=== PATIENT | female | born 1985 | race American Indian/Alaskan Native ===

== ENCOUNTER 2018-10-18 14:59 | Emergency (ER) | payer MEDICAID ==
--- NOTE | 2018-10-18 15:33 | Emergency Department Report ---
ED HPI - General Chief complaint: Vaginal Bleeding Stated complaint: 5WKS PREG/SPOTTING Time Seen by Provider: 10/18/18 15:18 Source: patient Mode of arrival: Ambulatory Limitations: No Limitations - History of Present Illness Initial comments: Zbigniew is a 33-year-old -[place] female who comes to the ER today complaining of vaginal bleeding in . 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 Last menstrual 09/09/2018. 2 para 1. She states that the bleeding is mild spotting. She denies abdominal pain. No vaginal discharge. Home meds Vimpat recently stopped for upcoming neurology appointment Complaint: vaginal bleeding -: Sudden Associated symptoms: vaginal bleeding Vaginal bleeding: light :: Yes - Related Data Allergies Allergy/AdvReac Type Severity Reaction Status Date / Time No Known Allergies Allergy Verified 10/18/18 15:07 ED Review of Systems ROS: Stated complaint: 5WKS PREG/SPOTTING Other details as noted in HPI Comment: All other systems reviewed and negative Constitutional: denies: chills Eyes: denies: eye pain ENT: denies: throat pain Respiratory: denies: orthopnea Cardiovascular: denies: palpitations Endocrine: denies: excessive sweating Gastrointestinal: denies: nausea Genitourinary: as per HPI, other (bleeding in preg). denies: urgency, dysuria, frequency, hematuria, discharge, abnormal menses, dyspareunia Musculoskeletal: denies: back pain Skin: denies: lesions Neurological: denies: weakness Psychiatric: denies: anxiety Hematological/Lymphatic: denies: as per HPI ED Past Medical Hx - Past Medical History Previous Medical History?: Yes Hx Seizures: Yes Additional medical history: anxiety attacks and "muscle spasms" - Surgical History Additional Surgical History: unknown - Family History Family history: no significant - Social History Smoking Status: Current Some Day Smoker Substance Use Type: Marijuana ED Physical Exam - General Limitations: No Limitations General appearance: alert - Head Head exam: Present: atraumatic - Eye Eye exam: Present: normal appearance, PERRL - ENT ENT exam: Present: mucous membranes moist - Neck Neck exam: Present: normal inspection - Respiratory Respiratory exam: Present: normal lung sounds bilaterally - Cardiovascular Cardiovascular Exam: Present: regular rate - GI/Abdominal GI/Abdominal exam: Present: soft, normal bowel sounds - Extremities Exam Extremities exam: Present: normal inspection - Back Exam Back exam: Present: normal inspection, full ROM - Neurological Exam Neurological exam: Present: alert, oriented X3, CN II-XII intact - Psychiatric Psychiatric exam: Present: normal affect, normal mood, anxious - Skin Skin exam: Present: warm, dry, intact ED Course Vital Signs 10/18/18 15:07 Temperature 98.3 F Pulse Rate 86 Respiratory 16 Rate Blood Pressure 128/81 O2 Sat by Pulse 100 Oximetry ED Medical Decision Making - Lab Data Result diagrams: 10/18/18 15:24 10/18/18 15:24 - Radiology Data Radiology results: report reviewed - Medical Decision Making LABS NOTED BLOOD TYPE A POS US noted dc home with obgyn follow up in 48 hours. Labs 10/18/18 10/18/18 10/18/18 15:24 15:24 15:24 WBC 5.3 RBC 4.67 Hgb 13.8 Hct 42.4 MCV 91 MCH 30 MCHC 33 RDW 14.6 Plt Count 144 Sodium 138 Potassium 4.2 Chloride 102.6 Carbon Dioxide 26 Anion Gap 14 BUN 11 Creatinine 0.5 L Estimated GFR > 60 BUN/Creatinine Ratio 22 Glucose 83 Calcium 10.0 HCG, Quant Urine Color Yellow Urine Turbidity Clear Urine pH 5.0 Ur Specific [place] 1.028 Urine Protein <15 mg/dl Urine Glucose (UA) Neg Urine Ketones Tr Urine Blood Neg Urine Nitrite Neg Ur Reducing Substances Not Reportable Urine Bilirubin Neg Urine Ictotest Not Reportable Urine Urobilinogen < 2.0 Ur Leukocyte Esterase Neg Urine WBC (Auto) 3.0 Urine RBC (Auto) 5.0 U Epithel Cells (Auto) 3.0 Urine Mucus 3+ Urine HCG, Qual Positive A Blood Type 10/18/18 10/18/18 15:24 15:24 WBC RBC Hgb Hct MCV MCH MCHC RDW Plt Count Sodium Potassium Chloride Carbon Dioxide Anion Gap BUN Creatinine Estimated GFR BUN/Creatinine Ratio Glucose Calcium HCG, Quant 5785 H Urine Color Urine Turbidity Urine pH Ur Specific [place] Urine Protein Urine Glucose (UA) Urine Ketones Urine Blood Urine Nitrite Ur Reducing Substances Urine Bilirubin Urine Ictotest Urine Urobilinogen Ur Leukocyte Esterase Urine WBC (Auto) Urine RBC (Auto) U Epithel Cells (Auto) Urine Mucus Urine HCG, Qual Blood Type A POSITIVE - Differential Diagnosis ro ab Critical care attestation.: If time is entered above; I have spent that time in minutes in the direct care of this critically ill patient, excluding procedure time. ED Disposition Clinical Impression: Threatened Disposition: [id number] TO HOME OR SELFCARE Is pt being admited?: No Does the pt Need Aspirin: No Condition: Stable Instructions: Threatened Miscarriage (ED) Additional Instructions: PELVIC REST FOLLOW UP WITH OBGYN IN 48 HOURS FOR RECHECK OF YOUR HORMONE-- IT WAS 5785 TODAY LET OB KNOW YOU WERE SEEN HERE AND HE CAN GET YOUR ULTRASOUND IMAGES DIET TOLERATED TYLENOL FOR PAIN VITAMIN INSTRUCTED Referrals: NANCY YBARRA MD [Primary Care Provider] - 3-5 Days ALEXYS ROMO MD [Staff Physician] - 3-5 Days Time of Disposition: 15:33
[2018-10-18 15:49] LABS: HCG Qualitative,Urine Positive (Negative)
[2018-10-18 15:52] LABS: Bilirubin,Urine NEG (Negative); Blood,Urine NEG (Negative); Color,Urine Yellow (Yellow); Mucus,Urine 3+ /HPF; Protein,Urine <15 mg/dL mg/dL (Negative); Urobilinogen,Urine < 2.0 mg/dL (<2.0)
[2018-10-18 16:10] LABS: BUN/Creatinine Ratio 22; Blood Urea Nitrogen 11 mg/dL (7-17); Hemolysis Index 10
[2018-10-18 16:11] LABS: Hematocrit 42.4 % (30.3-42.9); Hemoglobin 13.8 gm/dl (10.1-14.3); Mean Corpuscular HGB Conc 33 % (30-34); Mean Corpuscular Volume 91 fl (79-97); Red Blood Count 4.67 M/mm3 (3.65-5.03); Red Cell Distribution Width 14.6 % (13.2-15.2)
[2018-10-18 16:18] LABS: Platelet Count 144 K/mm3 (140-440)
--- NOTE | 2018-10-18 18:29 | Ultrasound Report ---
FINAL REPORT EXAM: US OB <= 14 WEEKS FETUS HISTORY: vag bleed 33-year-old female, LMP 09/09/2018, vaginal bleeding Comparison: None TECHNIQUE: Obstetrical sonographic imaging was performed FINDINGS: Normally anteverted uterus measures 7.9 x 4.4 x 4.7 centimeters. Endometrial stripe thickness measures 13 millimeters. Within the endometrium, there is a gestational sac. By mean sac diameter of 9 millimeters, estimated gestational age is 5 weeks 5 days. Estimated due date by today's ultrasound is 06/15/2019 A yolk sac is identified. There is no free fluid. There is a 1.0 x 0.3 x 1.0 centimeter subchorionic bleed. No pole is identified. Right ovary measures 3.4 x 1.3 x 2.5 centimeters and shows normal color flow. Left ovary measures 4.2 x 2.3 x 2.1 centimeters and shows normal color flow. There is a 1.0 centimete r cyst of the left ovary. IMPRESSION: 9 millimeter gestational sac correlating with an estimated gestational age of 5 weeks 5 days. Yolk sa c and small heterogeneous subchorionic bleed identified. No pole is seen. There is decidual jose m ction with thickened endometrial stripe. Findings are most likely predictive of very early intrauterine gestation. Recommend short interval fo llow-up ultrasound and correlation with serial beta hCGs to exclude a blighted ovum as there is a sma ll heterogeneous subchorionic bleed measuring 1.0 x 1.3 centimeters.
--- NOTE | 2018-10-18 18:31 | Ultrasound Report ---
FINAL REPORT EXAM: US OB TRANSVAGINAL HISTORY: vag bleed 33-year-old female, LMP 09/09/2018, vaginal bleeding Comparison: None TECHNIQUE: Obstetrical sonographic imaging was performed FINDINGS: FINDINGS: Normally anteverted uterus measures 7.9 x 4.4 x 4.7 centimeters. Endometrial stripe thickness measures 13 millimeters. Within the endometrium, there is a gestational sac. By mean sac diameter of 9 millimeters, estimated gestational age is 5 weeks 5 days. Estimated due date by today's ultrasound is 06/15/2019 A yolk sac is identified. There is no free fluid. There is a 1.0 x 0.3 x 1.0 centimeter subchorionic bleed. No pole is identified. Right ovary measures 3.4 x 1.3 x 2.5 centimeters and shows normal color flow. Left ovary measures 4.2 x 2.3 x 2.1 centimeters and shows normal color flow. There is a 1.0 centimete r cyst of the left ovary. IMPRESSION: 9 millimeter gestational sac correlating with an estimated gestational age of 5 weeks 5 days. Yolk sa c and small heterogeneous subchorionic bleed identified. No pole is seen. There is decidual jose m ction with thickened endometrial stripe. Findings are most likely predictive of very early intrauterine gestation. Recommend short interval fo llow-up ultrasound and correlation with serial beta hCGs to exclude a blighted ovum as there is a sma ll heterogeneous subchorionic bleed measuring 1.0 x 1.3 centimeters.
[2018-10-18 18:37] VITALS: BP 114/73
== END 2018-10-18 18:37 | disposition home or self-care (01) ==
LOC: ED 14:59
DX: O20.0 Threatened abortion (principal); F41.9 Anxiety disorder, unspecified; O99.331 Smoking (tobacco) complicating pregnancy, first trimester; Z3A.01 Less than 8 weeks gestation of pregnancy
CPT/HCPCS: 36415; 76801; 76817; 80048; 81001; 81025; 84702; 85027; 86900; 86901

== ENCOUNTER 2019-02-24 21:26 | Outpatient (CLI) | payer MEDICAID ==
[2019-02-24 21:52] VITALS: BP 116/70
[2019-02-24] MEDS ORDERED: LACTATED RINGERS 1,000 ML ONE (21:55)
[2019-02-24] MEDS ORDERED: LACTATED RINGERS 500 ML IV ONE (22:38)
[2019-02-24 23:30] LABS: Bacteria,Urine 1+ /HPF (Negative); Bilirubin,Urine NEG (Negative); Blood,Urine NEG (Negative); Color,Urine Yellow (Yellow); Mucus,Urine 3+ /HPF; Urobilinogen,Urine < 2.0 mg/dL (<2.0)
== END 2019-02-25 00:25 | disposition home or self-care (01) ==
LOC: TRG 21:26
PROVIDERS: ATTEND Obstetrics & Gynecology
DX: O62.9 Abnormality of forces of labor, unspecified (principal); O26.892 Other specified pregnancy related conditions, second trimester; R10.2 Pelvic and perineal pain; Z3A.24 24 weeks gestation of pregnancy; Z87.891 Personal history of nicotine dependence
CPT/HCPCS: 59025; 81001; J7120; 96360; 96361

== ENCOUNTER 2021-05-07 09:22 | Emergency (ER) | payer MEDICAID ==
[2021-05-07 09:54] VITALS: BP 130/74
[2021-05-07 12:19] LABS: Hematocrit 36.5 % (30.3-42.9); Hemoglobin 12.5 gm/dl (10.1-14.3); Mean Corpuscular HGB Conc 34 % (30-34); Mean Corpuscular Volume 87 fl (79-97); Red Blood Count 4.22 M/mm3 (3.65-5.03); Red Cell Distribution Width 13.6 % (13.2-15.2)
[2021-05-07 12:39] LABS: Alanine Aminotransferase 9 units/L (7-56); Albumin 3.9 g/dL (3.9-5); Blood Urea Nitrogen 7 mg/dL (7-17); Calcium 9.4 mg/dL (8.4-10.2); Hemolysis Index 0
[2021-05-07 12:45] LABS: BUN/Creatinine Ratio 14
--- NOTE | 2021-05-07 14:12 | Event Note ---
ED Screening Note Date of service: 05/07/21 Time: 14:00 ED Screening Note: Patient complains of fatigue/weakness and nausea for the past week This initial assessment/diagnostic orders/clinical plan/treatment(s) is/are subject to change based on patients health status, clinical progression and re- assessment by fellow clinical providers in the ED. Further treatment and workup at subsequent clinical providers discretion. Patient/guardian urged not to elope from the ED as their condition may be serious if not clinically assessed and managed. Initial orders include: Labs
[2021-05-07 18:56] LABS: Total Cells Counted 100
[2021-05-07 18:57] LABS: Giant Platelets Rare; Platelet Clumps Rare; RBC Morphology Normal
== END 2021-05-07 14:11 | disposition left against medical advice (07) ==
LOC: ED 09:22
DX: R42 Dizziness and giddiness (principal); Z53.21 Procedure and treatment not carried out due to patient leaving prior to being seen by health care provider
CPT/HCPCS: 36415; 80053; 84703; 85007; 85025

== ENCOUNTER 2021-05-08 06:59 | Emergency (ER) | payer MEDICAID ==
[2021-05-08 08:00] VITALS: BP 121/63
[2021-05-08 08:50] LABS: INR 0.91 (0.87-1.13); Partial Thromboplastin Time 26.7 Sec. (24.2-36.6)
[2021-05-08 09:51] LABS: Bilirubin,Urine NEG (Negative); Blood,Urine NEG (Negative); Color,Urine Yellow (Yellow); Mucus,Urine FEW /HPF; Protein,Urine <15 mg/dL mg/dL (Negative); Urobilinogen,Urine < 2.0 mg/dL (<2.0)
[2021-05-08 09:52] LABS: RBC,Urine < 1.0 /HPF (0.0-6.0)
--- NOTE | 2021-05-08 10:09 | Ultrasound Report ---
ULTRASOUND OBSTETRIC INDICATION: vaginal bleeding and pelvic pain. Clinical Gestational Age (GA): 16 weeks, 1 day TECHNIQUE: Transabdominal. COMPARISON: None available. FINDINGS: There is a single intrauterine . Biparietal Diameter = 3.2 cm = 16 weeks, 1 day(s). Head Circumference = 12.7 cm = 16 weeks, 3 day(s). Abdominal Circumference = 10.3 cm = 16 weeks, 2 day(s). Femur Length = 2.1 cm = 16 weeks, 1 day(s). Average Ultrasound Age (AUA) = 16 weeks, 2 day(s). Heart Rate: 149 beats per minute. Estimated Weight in grams (if calculated): 148 Estimated Weight Growth Percentile (if calculated): 45 Position: cephalic. Cervix: closed. Length in cm (if measured): 2.5 Placenta: posterior and free of the os. Amniotic Fluid Volume: normal Amniotic Fluid Index (MONET) in cm (if calculated): Not calculated. Maternal Adnexa: No significant abnormality. IMPRESSION: 1. Single, living intrauterine with estimated sonographic age of 16 weeks, 2 day(s). 2. Decreased cervical length of 2.5 cm. Close clinical and imaging follow-up is recommended. Signer Name: Norris Herrmann MD Signed: 05/08/2021 10:04 AM Workstation Name: [id number]
--- NOTE | 2021-05-08 10:21 | Emergency Department Report ---
ED HPI - General Chief complaint: Vaginal Bleeding Stated complaint: BLEEDING CRAMPING Time Seen by Provider: 05/08/21 08:00 Source: patient Mode of arrival: Ambulatory Limitations: No Limitations - History of Present Illness Initial comments: This is a 36-year-old female nontoxic, well nourished in appearance, no acute signs of distress presents to the ED with c/o of vaginal bleeding and pelvic pain x1 day. Patient came in yesterday due to symptoms of vomiting and tiredness and had a positive spoke patient left AGAINST MEDICAL ADVICE before seeing a provider. Patient stated that today she started to have some vaginal bleeding and pelvic pain. Patient stated yesterday she noticed some spotting this morning x3 occasions. Patient denies any upper abdominal pain. Patient denies any vaginal discharge or foul odor. Patient denies any nausea, vomiting, chest pain, shortness of breathe, fever, chills, headache, stiff neck, numbness, tingling. Patient denies any urinary symptoms. Patient denies any allergies or PMH. MD Complaint: vaginal bleeding -: days(s) Location: pelvis Radiation: none Severity: mild Severity scale (0 -10): 3 Quality: cramping Consistency: constant Improves with: none Worsens with: none Vaginal bleeding: light :: Yes Number of weeks : 16 Pre-anjana care: none - Related Data Previous Rx's Medication Instructions Recorded Last Taken Type 21/Iron Fu/Folic Acid 1 each PO DAILY #30 tablet 05/08/21 Unknown Rx [ Complete Caplet] Allergies Allergy/AdvReac Type Severity Reaction Status Date / Time No Known Allergies Allergy Verified 05/08/21 07:55 ED Review of Systems ROS: Stated complaint: BLEEDING CRAMPING Other details as noted in HPI Comment: All other systems reviewed and negative Constitutional: denies: chills, fever Eyes: denies: eye pain, eye discharge, vision change ENT: denies: ear pain, throat pain Respiratory: denies: cough, shortness of breath, wheezing Cardiovascular: denies: chest pain, palpitations Endocrine: no symptoms reported Gastrointestinal: denies: abdominal pain, nausea, diarrhea Genitourinary: abnormal menses. denies: urgency, dysuria, frequency, hematuria, discharge, dyspareunia Musculoskeletal: denies: back pain, joint swelling, arthralgia Skin: denies: rash, lesions Neurological: denies: headache, weakness, paresthesias Psychiatric: denies: anxiety, depression Hematological/Lymphatic: denies: easy bleeding, easy bruising ED Past Medical Hx - Past Medical History Hx Hypertension: No Hx Diabetes: No Hx Deep Vein Thrombosis: No Hx Renal Disease: No Hx Sickle Cell Disease: No Hx Seizures: Yes (Patient reported she do not take medications) Hx Asthma: No Hx HIV: No Additional medical history: anxiety attacks and "muscle spasms" - Surgical History Additional Surgical History: unknown - Social History Smoking Status: Never Smoker Substance Use Type: None - Medications Home Medications: Home Medications Medication Instructions Recorded Confirmed Last Taken Type 21/Iron Fu/Folic Acid 1 each PO DAILY #30 tablet 05/08/21 Unknown Rx [ Complete Caplet] ED Physical Exam - General Limitations: No Limitations General appearance: alert, in no apparent distress - Head Head exam: Present: atraumatic, normocephalic - Eye Eye exam: Present: normal appearance - Neck Neck exam: Present: normal inspection, full ROM. Absent: lymphadenopathy - Respiratory Respiratory exam: Present: normal lung sounds bilaterally. Absent: respiratory distress, wheezes, rales, rhonchi, stridor, chest wall tenderness, accessory muscle use, decreased breath sounds, prolonged expiratory - Cardiovascular Cardiovascular Exam: Present: regular rate, normal rhythm, normal heart sounds. Absent: irregular rhythm, systolic murmur, diastolic murmur, rubs, gallop - GI/Abdominal GI/Abdominal exam: Present: soft, normal bowel sounds. Absent: distended, tenderness, guarding, rebound, rigid, diminished bowel sounds - Extremities Exam Extremities exam: Present: normal inspection, full ROM - Back Exam Back exam: Present: normal inspection, full ROM. Absent: tenderness, CVA tenderness (R), CVA tenderness (L), muscle spasm, paraspinal tenderness, vertebral tenderness, rash noted - Neurological Exam Neurological exam: Present: alert, oriented X3, normal gait - Psychiatric Psychiatric exam: Present: normal affect, normal mood - Skin Skin exam: Present: warm, dry, intact, normal color. Absent: rash ED Course Vital Signs 05/08/21 07:58 Temperature 98.8 F Pulse Rate 94 H Respiratory 16 Rate Blood Pressure 121/63 O2 Sat by Pulse 100 Oximetry - Reevaluation(s) Reevaluation #1: 05/08/21 10:19 Patient is speaking in full sentences with no signs of distress noted. ED Medical Decision Making - Lab Data Lab Results 05/08/21 05/08/21 05/08/21 Range/Units 08:17 08:17 08:17 PT 12.9 (12.2-14.9) Sec. INR 0.91 (0.87-1.13) APTT 26.7 (24.2-36.6) Sec. HCG, Quant 17795 H (0-4) mIU/mL Urine Color (Yellow) Urine Turbidity (Clear) Urine pH (5.0-7.0) Ur Specific [place] (1.003-1.030) Urine Protein (Negative) mg/dL Urine Glucose (UA) (Negative) mg/dL Urine Ketones (Negative) mg/dL Urine Blood (Negative) Urine Nitrite (Negative) Urine Bilirubin (Negative) Urine Urobilinogen (<2.0) mg/dL Ur Leukocyte Esterase (Negative) Urine WBC (Auto) (0.0-6.0) /HPF Urine RBC (Auto) (0.0-6.0) /HPF U Epithel Cells (Auto) (0-13.0) /HPF Urine Mucus /HPF Blood Type A POSITIVE 05/08/21 Range/Units 08:17 PT (12.2-14.9) Sec. INR (0.87-1.13) APTT (24.2-36.6) Sec. HCG, Quant (0-4) mIU/mL Urine Color Yellow (Yellow) Urine Turbidity Clear (Clear) Urine pH 6.0 (5.0-7.0) Ur Specific [place] 1.010 (1.003-1.030) Urine Protein <15 mg/dl (Negative) mg/dL Urine Glucose (UA) Neg (Negative) mg/dL Urine Ketones Neg (Negative) mg/dL Urine Blood Neg (Negative) Urine Nitrite Neg (Negative) Urine Bilirubin Neg (Negative) Urine Urobilinogen < 2.0 (<2.0) mg/dL Ur Leukocyte Esterase Neg (Negative) Urine WBC (Auto) 1.0 (0.0-6.0) /HPF Urine RBC (Auto) < 1.0 (0.0-6.0) /HPF U Epithel Cells (Auto) 6.0 (0-13.0) /HPF Urine Mucus Few /HPF Blood Type PLEASE SEE MORE LAB RESULTS FROM YESTERDAYS VISIT <24 HOURS Ago. - Radiology Data [facility] [address] [place] [address] Ultrasound Report Signed Patient: CARLTON CLOUD MR#: [id number] : 1985 Acct:[id number] Age/Sex: 36 / F ADM Date: 05/08/21 Loc: ED Attending Dr: Ordering Physician: JONATHAN BLOOM NP Date of Service: 05/08/21 Procedure(s): US OB >= 14 weeks Fetus Accession Number(s): [id number] cc: JONATHAN BLOOM NP ULTRASOUND OBSTETRIC INDICATION: vaginal bleeding and pelvic pain. Clinical Gestational Age (GA): 16 weeks, 1 day TECHNIQUE: Transabdominal. COMPARISON: None available. FINDINGS: There is a single intrauterine . Biparietal Diameter = 3.2 cm = 16 weeks, 1 day(s). Head Circumference = 12.7 cm = 16 weeks, 3 day(s). Abdominal Circumference = 10.3 cm = 16 weeks, 2 day(s). Femur Length = 2.1 cm = 16 weeks, 1 day(s). Average Ultrasound Age (AUA) = 16 weeks, 2 day(s). Heart Rate: 149 beats per minute. Estimated Weight in grams (if calculated): 148 Estimated Weight Growth Percentile (if calculated): 45 Position: cephalic. Cervix: closed. Length in cm (if measured): 2.5 Placenta: posterior and free of the os. Amniotic Fluid Volume: normal Amniotic Fluid Index (MONET) in cm (if calculated): Not calculated. Maternal Adnexa: No significant abnormality. IMPRESSION: 1. Single, living int rauterine with estimated sonographic age of 16 weeks, 2 day(s). 2. Decreased cervical length of 2.5 cm. Close clinical and imaging follow-up is recommended. Signer Name: Norris Herrmann MD Signed: 05/08/2021 10:04 AM Workstation Name: [id number] Transcribed By: CHELE Dictated By: Norris Herrmann MD Electronically Authenticated By: Norris Herrmann MD Signed Date/Time: 05/08/21 1004 DD/ TD/TT: - Medical Decision Making This is a 36-year-old female presents with threatened miscarriage. Patient is stable and was examined by me. Normal abdominal exam. US OB obtained and dictated by the radiologist. Ua obtained. Quantative serum test obtained. Patient notified of the US report with no questions noted by the patient. Patient was instructed f/u with [facility] in 3-5 days. RH factor positive. Labs within normal limits. At time of discharge, the patient does not seem toxic or ill in appearance. No acute signs of distress noted. Patient agrees to discharge treatment plan of care. No further questions noted by the patient. Critical care attestation.: If time is entered above; I have spent that time in minutes in the direct care of this critically ill patient, excluding procedure time. ED Disposition Clinical Impression: Threatened miscarriage Qualifiers: Weeks of gestation: 16 weeks Qualified Code(s): Z3A.16 - 16 weeks gestation of Disposition: 01 HOME / SELF CARE / HOMELESS Is pt being admited?: No Does the pt Need Aspirin: No Condition: Stable Instructions: Threatened Miscarriage Additional Instructions: Follow-up with a [facility] doctor in 3-5 days or if symptoms worsen and continue return to emergency room as soon as possible. Prescriptions: 21/Iron Fu/Folic Acid [ Complete Caplet] 1 each PO DAILY #30 tablet Referrals: [facility] [Referring] - 3-5 Days [facility] [Provider Group] - 3-5 Days [facility] [Provider Group] - 3-5 Days Time of Disposition: 10:21
== END 2021-05-08 10:21 | disposition home or self-care (01) ==
LOC: ED 06:59
DX: O20.0 Threatened abortion (principal); Z3A.16 16 weeks gestation of pregnancy; F41.8 Other specified anxiety disorders
CPT/HCPCS: 36415; 76805; 81001; 84702; 85610; 85730; 86900; 86901; 99284